=== PATIENT | male | born 1980 | race Caucasian/White ===

== ENCOUNTER → 2023-03-25 | Outpatient (CLI) | payer OTHER ==
--- NOTE | 2023-03-25 08:54 | Diagnostic Imaging Report ---
CLINICAL HISTORY: Right shoulder pain. Lifting injury. COMPARISON: None. TECHNIQUE: 3 views of the right shoulder. FINDINGS: There is no acute fracture or dislocation of the right shoulder. Alignment is anatomic. The imaged joint spaces are preserved. No focal osseous lesions. The included right chest is clear. IMPRESSION: 1. No acute fracture or dislocation in the right shoulder. Dictated by: Dictated on workstation # [id number]
== END ==
LOC: ORTHO 08:11
PROVIDERS: ATTEND Orthopaedic Surgery
DX: M25.511 Pain in right shoulder (principal)
CPT/HCPCS: 73030; 99213